=== PATIENT | male | born 1930 | race Caucasian/White ===

== ENCOUNTER 2017-02-09 16:56 | Inpatient (IN) | payer MEDICARE ==
--- NOTE | ~2017-02-09 | HP ---
History And Physical [place] [id number] [facility] [place]. [address] NAME: ELISEO FISHER : 32 STATUS : ADM IN PAT#: [id number] AGE: 86 ADM/REG DATE : 02/09/17 MR#: [id number] REPORT SERV DATE: 02/09/17 DICTATED BY: HAYDER GONZALEZ DATE: 02/09/17 REPORT STATUS : Draft TRANSCRIBED BY: MODAbhinav DATE: 02/09/17 DATE OF ADMISSION: 02/09/2017 REASON FOR ADMISSION: Dehydration, hypotension, weakness, and urinary tract infection. CHIEF COMPLAINT: "I have been feeling weak for the past week." HISTORY OF PRESENT ILLNESS: An 86-year-old white male with a history of CKD, stage III, chronic Alford catheter along with a history of small cell lung cancer, no longer being treated, was followed up with Dr. Paulson at some point in time, along with metastatic prostate cancer. The patient was just on our service, discharged after one day hospitalization towards the end of December for a concern for urinary tract infection, weakness, and dehydration. It is very well documented the patient is a DO NOT RESUSCITATE and he refuses to accept hospice as apparently there was a bad experience with his . The patient currently lives with his daughter and with the help of home health to take care of him. The daughter is at the bedside and states that the patient was doing okay after discharge; however, this past Tuesday, she has been noticing that he is becoming weaker and weaker. On Tuesday, his strength had slightly regained back, but home health came to the house today and noted that he had a low blood pressure. He tried to get himself up, but fell right back down. Denied any syncope or loss of consciousness. His daughter noted that he was having some problems with his catheter, where there was some leakage, it was actually changed out. On Tuesday, his urine is typically yellow in color; however, today, the home health noted that there was some blood in his urine. Home health took his blood pressure and his systolic blood pressure was in the 80s, and he was sent down to [facility] for further evaluation. The patient denies any fever, but has some chronic chills. His blood pressure currently at the time of my examination is normotensive. He was complaining of some pain around his suprapubic area which has resolved after he rubs it. In the ER, he got a dose of Percocet, a chest x-ray, CT scan of the abdomen, and a liter of fluids. REVIEW OF SYSTEMS: As per HPI. Otherwise, 10-point system were reviewed and are negative. PAST MEDICAL HISTORY: Metastatic prostate cancer to the bone; CKD, stage III/IV; history of pancytopenia; history of small cell lung cancer; COPD with pulmonary fibrosis; small cell lung cancer, status post chemotherapy and radiation in 2015. PAST SURGICAL HISTORY: He had a prostate surgery. SOCIAL HISTORY: He gave up smoking seven to eight years ago, still chews tobacco. Lives with his daughter. He is , in 2007. Drinks occasional beer. FAMILY HISTORY: He has a brother, who had some diabetes. Mother and father had some diabetes. ALLERGIES: TO ASPIRIN. History And Physical [address] [address] NAME: ELISEO FISHER : 32 STATUS : ADM IN [facility]#: [id number] AGE: 86 ADM/REG DATE : 02/09/17 MR#: [id number] REPORT SERV DATE: 02/09/17 DICTATED BY: HAYDER GONZALEZ DATE: 02/09/17 REPORT STATUS : Draft TRANSCRIBED BY: LEWIS DATE: 02/09/17 MEDICATIONS: Home medications are being reviewed. PHYSICAL EXAMINATION: VITAL SIGNS: Vitals show a blood pressure of 92/43, now his systolic pressure is 133; saturating 100% on 2 liters nasal cannula; temperature is 98.5; and pulse is 101. GENERAL: He is in no acute distress. A little bit hard of hearing. Alert and oriented x3. Accompanied by his daughter, very pleasant, nontoxic, and not ill appearing. HEENT: Normocephalic and atraumatic head. Extraocular muscles are intact. Oropharynx is clear. NECK: Supple. No JVD. CARDIAC: Regular rhythm. No murmurs, rubs, or gallops. PULMONARY: Decent air movement with some right basilar crackles. ABDOMEN: Soft, nontender, and nondistended. Positive bowel sounds. EXTREMITIES: Show no clubbing, cyanosis, or edema. There are multiple ecchymoses in his upper extremities. SKIN: Warm and dry. NEUROLOGIC: No focal deficits. : There is a Alford with some hematuria and bloody brown urine. LABORATORY DATA: Labs show white blood cell count 7.3, hemoglobin 8.3, and platelet of 134. Chest x-ray shows stable cardiomegaly. Potassium 5.5, BUN 77, and creatinine 2.37. Troponin 0.06. UA shows large blood, moderate leukocyte esterase, 34 white blood cells, and few clumps. BNP of 580. CT scan of the abdomen and pelvis without contrast shows left basilar pulmonary nodule, likely metastatic; hepatic nodules, likely metastatic; splenic mass, likely metastatic; extensive blastic skeletal metastatic disease. EKG shows sinus rhythm with some ST abnormalities. IMPRESSION: 1. Weakness and hypotension secondary to dehydration. 2. Chronic Alford with a urinary tract infection that is secondary to his chronic Alford. 3. Chronic hypoxic respiratory failure on 2 liters nasal cannula. 4. Hematuria. 5. Acute kidney injury on chronic kidney disease, stage III. 6. Anemia of chronic disease. 7. Chronic obstructive pulmonary disease. 8. Chronic systolic heart failure with an ejection fraction of 25%, compensated. 9. History of small cell lung cancer with metastatic prostate cancer. 10.DO NOT RESUSCITATE/DO NOT INTUBATE. PLAN: The plan is to do gentle hydration with IV fluids, monitor for volume overload. We will start on Zosyn. Follow up urine culture. We will check a procalcitonin and lactic acid. We will resume his home medications, but renally dose medications and avoid nephrotoxic agents. We will get PT to evaluate him. The patient is a DNR/DNI. Anticipate discharging home in potentially two to three days. History And Physical [address] [address] NAME: ELISEO FISHER : 32 STATUS : ADM IN [facility]#: [id number] AGE: 86 ADM/REG DATE : 02/09/17 MR#: [id number] REPORT SERV DATE: 02/09/17 DICTATED BY: HAYDER GONZALEZ DATE: 02/09/17 REPORT STATUS : Draft TRANSCRIBED BY: LEWIS DATE: 02/09/17 TAMARA/LEWIS Hayder Gonzalez MD / [id number] CC: MD Tony Mcdermott M.D.
--- NOTE | ~2017-02-09 | DS ---
Discharge Summary [facility] [address] [place]. [address] NAME: ELISEO ORTEGA : 32 STATUS : DIS IN PAT#: [id number] AGE: 86 ADM/REG DATE : 02/09/17 MR#: [id number] REPORT SERV DATE: 02/13/17 DICTATED BY: HAYDER GONZALEZ DATE: 02/12/17 REPORT STATUS : Draft TRANSCRIBED BY: MODL DATE: 02/12/17 ADMISSION DATE: 02/09/2017 DISCHARGE DATE: 02/12/2017 REASON FOR ADMISSION: Dehydration, hypotension, weakness, and UTI. HISTORY OF PRESENT ILLNESS: Please refer to my history and physical dated 02/09/2017 for complete details regarding the patient's admission. In brief, the patient was admitted to the Hospitalist Service for weakness and hypotension secondary to dehydration and initial concern of urinary tract infection. HOSPITAL COURSE: The patient was recently discharged from our service for similar issues. He presented from home to the hospital, as home health had recorded a blood pressure in the 80s and noted that he had some blood in his urine, and was dehydrated. In the emergency room, he was given some fluids. Had a CT scan of his abdomen and pelvis, which showed left basilar pulmonary nodules, likely metastatic; hepatic nodules, likely metastatic; splenic mass, also likely neoplastic; extensive blastic skeletal metastatic disease and extensive calcific atherosclerosis. He was started on IV fluids and started on Zosyn with initial concern of having urinary tract infection. He had been on for a couple days until his urine culture came back positive for Angy, at which point, it was discontinued. With the help of IV fluids, his urine had turned to light yellow. He also presented with an acute kidney injury on CKD stage 3. His creatinine on admission was 2.37 and it was 1.88 when he was discharged on 01/21/2017. With IV fluids, it had come down to 1.55 at the time of discharge. Of note, his creatinine was 1.2 in mid August. Physical Therapy evaluated the patient, recommended [facility] facility; however, the patient continues to decline, transferred to a rehab facility, and wants to go home with Physical Therapy. The patient has reached maximal hospitalization. His hematuria has resolved and he will be discharged today in stable condition. DISCHARGE DIAGNOSES: Weakness/hypotension from dehydration, now resolved. No urinary tract infection. Acute kidney injury on CKD stage 3, resolved. Chronic Alford catheter. Anemia of chronic disease. Hematuria, now resolved. COPD without exacerbation. History of small cell lung cancer with ongoing metastatic prostate cancer. Do not resuscitate. PROCEDURES: Include CT scan of the abdomen and pelvis. DISCHARGE MEDICATIONS: Include Toprol-XL 100 mg every morning, Spiriva one capsule daily, prednisone 5 mg twice a day for maintenance therapy, albuterol p.r.n., Benadryl p.r.n., Bumex 1 mg once a day down from 2 mg, glipizide 5 mg every morning, metformin 1000 mg twice a day, [place] p.r.n. pain. We will resume his home health. Again, the patient is do not resuscitate, not intubate. He will be discharged home with home PT. He is not interested in hospice. Spending over 30 minutes in discharge planning and coordination of care on Mr. Ortega. Discharge Summary [address] [address] NAME: ELISEO ORTEGA : 32 STATUS : DIS IN PAT#: [id number] AGE: 86 ADM/REG DATE : 02/09/17 MR#: [id number] REPORT SERV DATE: 02/13/17 DICTATED BY: HAYDER GONZALEZ DATE: 02/12/17 REPORT STATUS : Draft TRANSCRIBED BY: LEWIS DATE: 02/12/17 DICTATED BY: MD TAMARA Mcdermott/LEWIS Hayder Gonzalez MD / [id number] CC: MD Tony Mcdermott M.D.
[2017-02-09 16:42] LABS: BASOPHILS 0 %; EOSINOPHILS 0.1 %; EOSINOPHILS ABSOLUTE 0.01 10/3/uL (0.0-0.53); ER CBC TAT 0 Hrs 05 Mins; HEMATOCRIT 25.4 % (40.0-51.0); HEMOGLOBIN 8.3 g/dL (13.6-17.8); IMMATURE GRANULOCYTES 0.7 %; IMMATURE GRANULOCYTES ABSOLUTE 0.05 10/3/uL (0.0-0.11); LYMPHOCYTES 6.7 %; LYMPHOCYTES ABSOLUTE 0.49 10/3/uL (0.67-4.30); MANUAL DIFF NO %; MEAN CORPUS HGB CONC 32.7 g/dL (32.0-36.0); MEAN CORPUSCULAR VOLUME 91.7 fL (80-100); MEAN PLATELET VOLUME 8.7 fL (9.2-13.0); MONOCYTES 6.3 %; MONOCYTES ABSOLUTE 0.46 10/3/uL (0.21-1.20); NEUTROPHILS 86.2 %; NEUTROPHILS ABSOLUTE 6.29 10/3/uL (2.02-8.40); PLATELET COUNT 134 10/3/uL (150-400); RED CELL COUNT 2.77 10/6/uL (4.7-6.1); WHITE BLOOD CELLS 7.3 10/3/uL (4.5-10.5)
[2017-02-09 16:50] LABS: INTERNATIONAL NORMAL RATI 1.1 UNITS (-); PARTIAL THROMBO TIME 33.4 SEC (22.5-37.2); PROTIME (NOT ORD) 14.4 SEC (12.0-14.5)
[~2017-02-09 16:56] MED LIST: ALEVE220 MG PO; ASMANEX INH; ATARAX50B PO; B12250T PO; BEN25 PO; BUM2 PO; COMP10B PO; COREG3 PO; COZ25 PO; DUONEB INH; FORTAMET1000 MG PO; FORTAMET500 MG PO; GLUCOTROL5 PO; HALF81 PO; HCTZ25B PO; HYDROCHLOROT25 MG PO; IMOD PO; L40 PO; LEVAQUIN5T PO; LOP50 PO; MIRALAXPKT PO; MONODOX100 MG PO; NORCO1 TA1 PO; OTC VITAMIN B-12 PO; OTC VITAMIN D PO; P10 PO; P5 PO; PRIN5 PO; PROAIR HFA INH; SPIRIVA INH; SUCR PO; TOPXL100 PO; TOPXL50 PO; VICODINTAB PO; VITAMIN B-122500 MCG SL; VITAMIN D31000 UNIT PO; XENADERM60 GM EX; ZOFRAN8 PO; ZYTIGA250 MG PO
[2017-02-09 16:59] LABS: BUN (BLOOD UREA NITROGEN) 77 MG/DL (6-23); CALCIUM, SERUM 9.2 MG/DL (8.5-10.4); CHLORIDE, SERUM 104 MMOL/L (96-112); CO2 (CARBON DIOXIDE) 23 MMOL/L (24-34); CREATININE 2.37 MG/DL (0.70-1.30); GFR AFRICAN AMERICAN 28 ML/MIN (>=60); GFR NON AFRICAN AMERICAN 24 ML/MIN (>=60); GLUCOSE, SERUM 127 MG/DL (60-99); POTASSIUM, SERUM 5.5 MMOL/L (3.5-5.3); SODIUM, SERUM 138 MMOL/L (135-148)
[2017-02-09 17:00] LABS: CHEST PAIN PROFILE TAT 0 Hrs 23 Mins; TROPONIN I 0.06 NG/ML (<0.05)
[2017-02-09 17:01] LABS: ASCORBIC ACID (UR NOT ORDER) NEG (NEG); BILIRUBIN, URINE NEGATIVE (NEG); ER URINALYSIS TAT 0 Hrs 24 Mins; KETONE, URINE NEGATIVE (NEG); LEUKOCYTE ESTERASE(NOT OR MOD (NEG); NITRITE (URINE) NEG (NEG); WBC (NOT ORDERED) (RFLEX) 34 (0-5)
[2017-02-09] MEDS ORDERED: PROAIR HFA INH (19:18)
[2017-02-09] MEDS ORDERED: BEN25 PO (19:19)
[2017-02-09] MEDS ORDERED: BUM2 PO (19:19)
[2017-02-09] MEDS ORDERED: FORTAMET1000 MG PO (19:20)
[2017-02-09] MEDS ORDERED: GLUCOTROL5 PO (19:20)
[2017-02-09] MEDS ORDERED: NORCO1 TA1 PO (19:22)
[2017-02-09] MEDS ORDERED: P5 PO (19:23)
[2017-02-09] MEDS ORDERED: TOPXL100 PO (19:24)
[2017-02-09] MEDS ORDERED: SPIRIVA INH (19:24)
[2017-02-09 23:01] LABS: HEMOGLOBIN 7.3 g/dL (13.6-17.8); MEAN CORPUS HGB CONC 33.3 g/dL (32.0-36.0); MEAN CORPUSCULAR HEMOGLOB 30.5 pg (26.0-34.0); MEAN CORPUSCULAR VOLUME 91.6 fL (80-100); MEAN PLATELET VOLUME 8.8 fL (9.2-13.0); PLATELET COUNT 117 10/3/uL (150-400); RED CELL COUNT 2.39 10/6/uL (4.7-6.1); WHITE BLOOD CELLS 6.2 10/3/uL (4.5-10.5)
[2017-02-09 23:05] LABS: HEMATOCRIT 21.9 % (40.0-51.0); MANUAL DIFF YES %
[2017-02-09 23:15] LABS: INTERNATIONAL NORMAL RATI 1.2 UNITS (-)
[2017-02-09 23:16] LABS: A/G RATIO 0.7 (0.7-1.9); ALBUMIN 2.5 G/DL (3.5-5.0); ALKALINE PHOSPHATASE 53 U/L (45-117); BUN (BLOOD UREA NITROGEN) 76 MG/DL (6-23); CALCIUM, SERUM 8.5 MG/DL (8.5-10.4); CHLORIDE, SERUM 105 MMOL/L (96-112); CO2 (CARBON DIOXIDE) 22 MMOL/L (24-34); CREATININE 2.18 MG/DL (0.70-1.30); GFR AFRICAN AMERICAN 31 ML/MIN (>=60); GFR NON AFRICAN AMERICAN 27 ML/MIN (>=60); GLOBULIN 3.8 G/DL (2.5-4.1); PHOSPHORUS, SERUM 3.3 MG/DL (2.5-4.5); POTASSIUM, SERUM 5.1 MMOL/L (3.5-5.3); SGOT(AST) 16 U/L (5-40); SGPT(ALT) 16 U/L (5-65); SODIUM, SERUM 138 MMOL/L (135-148); TOTAL BILIRUBIN 0.4 MG/DL (0-1.2); TOTAL PROTEIN 6.3 G/DL (6.0-8.5)
[2017-02-09 23:19] LABS: GLUCOSE, SERUM 193 MG/DL (60-99)
[2017-02-10 00:18] LABS: ANISOCYTOSIS 1+ (5-10/OIF) (0-5/OIF); BAND NEUTROPHILS 4 %; LYMPHOCYTES 10 %; LYMPHOCYTES ABSOLUTE (CALC) 0.62 10/3/uL (0.67-4.30); MONOCYTES 8 %; NEUTROPHILS ABSOLUTE (CALC) 5.08 10/3/uL (2.02-8.40); SEGMENTED NEUTROPHIL (0) 78 %; TOTAL NUCLEATED CELLS 100
[2017-02-10 00:19] LABS: PLATELET ESTIMATE SLT DEC (ADEQUATE)
[2017-02-10 00:20] LABS: PROCALCITONIN 0.34 ng/mL (<0.5)
[2017-02-10 06:34] LABS: BASOPHILS 0.2 %; BASOPHILS ABSOLUTE 0.01 10/3/uL (0.0-0.16); EOSINOPHILS 0.2 %; EOSINOPHILS ABSOLUTE 0.01 10/3/uL (0.0-0.53); HEMATOCRIT 21.4 % (40.0-51.0); IMMATURE GRANULOCYTES 0.6 %; IMMATURE GRANULOCYTES ABSOLUTE 0.03 10/3/uL (0.0-0.11); MEAN CORPUS HGB CONC 32.7 g/dL (32.0-36.0); MEAN CORPUSCULAR HEMOGLOB 30.2 pg (26.0-34.0); MEAN CORPUSCULAR VOLUME 92.2 fL (80-100); MEAN PLATELET VOLUME 8.8 fL (9.2-13.0); MONOCYTES 6.6 %; MONOCYTES ABSOLUTE 0.31 10/3/uL (0.21-1.20); NEUTROPHILS 77.4 %; NEUTROPHILS ABSOLUTE 3.61 10/3/uL (2.02-8.40); PLATELET COUNT 103 10/3/uL (150-400); RBC DISTRIBUTION WIDTH 17.3 % (12.0-16.0); RED CELL COUNT 2.32 10/6/uL (4.7-6.1); WHITE BLOOD CELLS 4.7 10/3/uL (4.5-10.5)
[2017-02-10 06:38] LABS: MANUAL DIFF NO %
[2017-02-10 06:44] LABS: BUN (BLOOD UREA NITROGEN) 74 MG/DL (6-23); CALCIUM, SERUM 8.5 MG/DL (8.5-10.4); CHLORIDE, SERUM 108 MMOL/L (96-112); CO2 (CARBON DIOXIDE) 23 MMOL/L (24-34); CREATININE 2.09 MG/DL (0.70-1.30); GFR AFRICAN AMERICAN 32 ML/MIN (>=60); GFR NON AFRICAN AMERICAN 28 ML/MIN (>=60); GLUCOSE, SERUM 111 MG/DL (60-99); PHOSPHORUS, SERUM 3.5 MG/DL (2.5-4.5); POTASSIUM, SERUM 4.8 MMOL/L (3.5-5.3); SODIUM, SERUM 139 MMOL/L (135-148)
[2017-02-11 06:59] LABS: BASOPHILS 0.3 %; BASOPHILS ABSOLUTE 0.01 10/3/uL (0.0-0.16); EOSINOPHILS 0 %; HEMATOCRIT 22.2 % (40.0-51.0); HEMOGLOBIN 7.1 g/dL (13.6-17.8); IMMATURE GRANULOCYTES 0.5 %; IMMATURE GRANULOCYTES ABSOLUTE 0.02 10/3/uL (0.0-0.11); LYMPHOCYTES 14.3 %; LYMPHOCYTES ABSOLUTE 0.52 10/3/uL (0.67-4.30); MEAN CORPUSCULAR VOLUME 93.7 fL (80-100); MEAN PLATELET VOLUME 8.6 fL (9.2-13.0); MONOCYTES 5.2 %; MONOCYTES ABSOLUTE 0.19 10/3/uL (0.21-1.20); NEUTROPHILS 79.7 %; PLATELET COUNT 101 10/3/uL (150-400); RBC DISTRIBUTION WIDTH 17.1 % (12.0-16.0); RED CELL COUNT 2.37 10/6/uL (4.7-6.1); WHITE BLOOD CELLS 3.6 10/3/uL (4.5-10.5)
[2017-02-11 07:02] LABS: MANUAL DIFF NO %
[2017-02-11 07:08] LABS: CALCIUM, SERUM 8.8 MG/DL (8.5-10.4); CHLORIDE, SERUM 109 MMOL/L (96-112); CO2 (CARBON DIOXIDE) 22 MMOL/L (24-34); CREATININE 1.87 MG/DL (0.70-1.30); GFR AFRICAN AMERICAN 37 ML/MIN (>=60); GFR NON AFRICAN AMERICAN 32 ML/MIN (>=60); GLUCOSE, SERUM 109 MG/DL (60-99); PHOSPHORUS, SERUM 3.6 MG/DL (2.5-4.5); POTASSIUM, SERUM 4.6 MMOL/L (3.5-5.3); SODIUM, SERUM 139 MMOL/L (135-148)
[2017-02-11 07:09] LABS: BUN (BLOOD UREA NITROGEN) 52 MG/DL (6-23)
[2017-02-12 05:35] LABS: HEMATOCRIT 21.6 % (40.0-51.0); HEMOGLOBIN 7.2 g/dL (13.6-17.8); MEAN CORPUS HGB CONC 33.3 g/dL (32.0-36.0); MEAN CORPUSCULAR HEMOGLOB 30.9 pg (26.0-34.0); MEAN CORPUSCULAR VOLUME 92.7 fL (80-100); MEAN PLATELET VOLUME 8.8 fL (9.2-13.0); PLATELET COUNT 98 10/3/uL (150-400); RED CELL COUNT 2.33 10/6/uL (4.7-6.1); WHITE BLOOD CELLS 3.1 10/3/uL (4.5-10.5)
[2017-02-12 05:50] LABS: MANUAL DIFF YES %
[2017-02-12 05:52] LABS: CALCIUM, SERUM 8.4 MG/DL (8.5-10.4); CHLORIDE, SERUM 112 MMOL/L (96-112); CO2 (CARBON DIOXIDE) 25 MMOL/L (24-34); CREATININE 1.55 MG/DL (0.70-1.30); GFR AFRICAN AMERICAN 47 ML/MIN (>=60); GFR NON AFRICAN AMERICAN 40 ML/MIN (>=60); GLUCOSE, SERUM 123 MG/DL (60-99); PHOSPHORUS, SERUM 3.7 MG/DL (2.5-4.5); POTASSIUM, SERUM 4.7 MMOL/L (3.5-5.3); SODIUM, SERUM 144 MMOL/L (135-148)
[2017-02-12 05:53] LABS: BUN (BLOOD UREA NITROGEN) 41 MG/DL (6-23)
[2017-02-12 06:05] LABS: ANISOCYTOSIS 1+ (5-10/OIF) (0-5/OIF); BAND NEUTROPHILS 10 %; LYMPHOCYTES 15 %; LYMPHOCYTES ABSOLUTE (CALC) 0.47 10/3/uL (0.67-4.30); MONOCYTES 9 %; MONOCYTES ABSOLUTE (CALC) 0.28 10/3/uL (0.21-1.20); NEUTROPHILS ABSOLUTE (CALC) 2.36 10/3/uL (2.02-8.40); PLATELET ESTIMATE DEC (ADEQUATE); SEGMENTED NEUTROPHIL (0) 66 %; TOTAL NUCLEATED CELLS 100
[2017-02-22] MEDS ORDERED: BUM1 PO (00:11)
[2017-02-22] MEDS ORDERED: GLUCOTROL5 PO (00:11)
[2017-02-22] MEDS ORDERED: PROAIR HFA INH (00:11)
[2017-02-22] MEDS ORDERED: BEN25 PO (00:11)
[2017-02-22] MEDS ORDERED: NORCO1 TA1 PO (00:11)
[2017-02-22] MEDS ORDERED: SPIRIVA INH (00:12)
[2017-02-22] MEDS ORDERED: P5 PO (00:12)
[2017-02-22] MEDS ORDERED: TOPXL100 PO (00:12)
[2017-02-25] MEDS ORDERED: CEFT5 PO (14:18)
[2017-03-11] MEDS ORDERED: PROAIR HFA INH (11:06)
[2017-03-11] MEDS ORDERED: BUM1 PO (11:06)
[2017-03-11] MEDS ORDERED: GLUCOTROL5 PO (11:07)
[2017-03-11] MEDS ORDERED: CEFT5 PO (11:07)
[2017-03-11] MEDS ORDERED: SPIRIVA INH (11:08)
[2017-03-11] MEDS ORDERED: TOPROL XL200 MG PO (11:08)
[2017-03-11] MEDS ORDERED: P5 PO (11:08)
[2017-03-11] MEDS ORDERED: NORCO1 TAB PO (11:08)
[2017-03-11] MEDS ORDERED: DURA25 TOP (11:09)
[2017-03-11] MEDS ORDERED: SENTAB PO (11:09)
[2017-03-11] MEDS ORDERED: FORTAMET1000 MG PO (11:09)
== END 2017-02-12 17:08 | disposition home or self-care (01) | DRG 683 ==
LOC: ER 16:56 → 5SO 18:36 → 4EA 02-10 14:29
PROVIDERS: Emergency Medicine; Internal Medicine
DX: N17.9 Acute kidney failure, unspecified (principal); J96.11 Chronic respiratory failure with hypoxia; C79.51 Secondary malignant neoplasm of bone; I50.22 Chronic systolic (congestive) heart failure; J84.10 Pulmonary fibrosis, unspecified; C61 Malignant neoplasm of prostate; E86.0 Dehydration; J44.9 Chronic obstructive pulmonary disease, unspecified; D63.8 Anemia in other chronic diseases classified elsewhere; N18.4 Chronic kidney disease, stage 4 (severe); Z85.118 Personal history of other malignant neoplasm of bronchus and lung; Z85.46 Personal history of malignant neoplasm of prostate; Z66 Do not resuscitate; Z92.3 Personal history of irradiation; Z92.21 Personal history of antineoplastic chemotherapy; Z87.891 Personal history of nicotine dependence; Z83.3 Family history of diabetes mellitus; Z88.6 Allergy status to analgesic agent
CPT/HCPCS: 71010; 74176; 80048; 80053; 81001; 83605; 83735; 83880; 84100; 84145; 84484; 85025; 85610; 85730; 87086; 93005; 97162-GP; 99291; A9270-GY; G8978-CL-GP; G8979-CJ-GP; J2543